=== PATIENT | male | born 1955 | race Two or more races ===

== ENCOUNTER 2019-10-15 18:25 | Emergency (ER) | payer MEDICAID ==
[~2019-10-15] VITALS: Ht 172.7 cm; Wt 90.0 kg
[2019-10-15] MEDS ORDERED: SODIUM CHLORIDE 0.9% 1,000 ML IV ONE (20:38)
[2019-10-15] MEDS ORDERED: LEVETIRACETAM 500MG PREMIX 100 ML IV ONE (20:45)
[2019-10-15] MEDS ORDERED: HYDRALAZINE 20MG/ML VIAL IV ONE (20:45)
[2019-10-15] MEDS ORDERED: LORAZEPAM 2MG/ML CPJ IV ONE (21:45)
[2019-10-15 23:12] LABS: BASOPHILS % 0.9 % (0.0-2.0); EOSINOPHILS % 0.7 % (0.0-5.0); HEMATOCRIT. 37.3 % (42.0-52.0); HEMOGLOBIN. 12.9 g/dL (14.0-18.0); LYMPHOCYTES % 15.3 % (20.0-50.0); MEAN CORPUSCULAR HEMOGLOBIN 32.5 pg (28.0-32.0); MEAN CORPUSCULAR VOLUME 94.2 fL (80.0-94.0); MEAN PLATELET VOLUME 7.4 fl (7.4-10.4); MONOCYTES % 8.8 % (2.0-8.0); NEUTROPHILS % 74.3 % (40.0-76.0); PLATELET 177 x1000/uL (130-400); RED BLOOD CELL COUNT 3.96 mill/uL (4.7-6.1)
[2019-10-15 23:18] LABS: CHLORIDE 108 mEq/L (98-107)
[2019-10-15 23:24] LABS: ETHANOL BLOOD < 10 mg/dL
[2019-10-15] MEDS ORDERED: ASPIRIN 325MG EC TABLET PO ONE (23:45)
[2019-10-16] MEDS ORDERED: CLONIDINE 0.2MG TABLET PO ONE
[2019-10-16] MEDS ORDERED: ENOXAPARIN 40MG/0.4ML SYR SUBCUT SCH (01:30)
[2019-10-16] MEDS ORDERED: HYDRALAZINE 20MG/ML VIAL IV PRN (01:30)
[2019-10-16] MEDS ORDERED: CLONIDINE 0.1MG TABLET PO PRN (01:30)
[2019-10-16] MEDS ORDERED: ONDANSETRON HCL 4MG/2ML INJ IV PRN (01:30)
[2019-10-16] MEDS ORDERED: LEVETIRACETAM 500 MG in SODIUM CHLORIDE 0.9% 100 ML IV SCH (01:30)
[2019-10-16] MEDS ORDERED: MAGNESIUM/ALUMINUM HYDROXIDE/SIMETHICONE 30ML UDC PO PRN (01:30)
[2019-10-16] MEDS ORDERED: ACETAMINOPHEN 325MG TABLET PO PRN (01:30)
[2019-10-16] MEDS ORDERED: LORAZEPAM 2MG/ML CPJ IV PRN (01:30)
[2019-10-16] MEDS ORDERED: DIPHENHYDRAMINE 50MG/ML VIAL IV PRN (01:30)
[2019-10-16] MEDS ORDERED: MVI, ADULT NO.1 10 ML, FOLIC ACID 1 MG, THIAMINE HCL 100 MG in SODIUM CHLORIDE 0.9% 1,0... IV SCH ×4 (02:00)
[2019-10-16] MEDS ORDERED: POTASSIUM CHLORIDE 20MEQ TABLET SR PO ONE (04:30)
[2019-10-16] MEDS ORDERED: SODIUM CHLORIDE 0.9% INJ 3ML FLUSH IVF SCH (06:00)
[2019-10-16 08:47] VITALS: BP 155/85
[2019-10-16] MEDS ORDERED: AMLODIPINE 5MG TABLET PO SCH (09:00)
== END 2019-10-16 08:51 | disposition left against medical advice (07) ==
LOC: ER 18:25 → EDBEDREQTM 10-16 00:03 → EDBEDREQ 10-16 00:03 → ER 10-16 08:51 → CANBEDREQ 10-16 09:42
DX: R56.9 Unspecified convulsions (principal); I21.4 Non-ST elevation (NSTEMI) myocardial infarction; I10 Essential (primary) hypertension; Z91.14 Patient's other noncompliance with medication regimen; E87.6 Hypokalemia; D64.9 Anemia, unspecified
CPT/HCPCS: 36415; 70450; 71045; 80053; 80320; 83735; 84484; 85025; 93005; 96365; 96367; 96375; 99284; J0360; J1953; J2060; J3411; J3490; J7030; G0480

== ENCOUNTER 2019-10-30 19:02 | Emergency (ER) | payer MEDICAID ==
[~2019-10-30] VITALS: Ht 175.3 cm; Wt 110.7 kg
[2019-10-30] MEDS ORDERED: KETOROLAC 60MG/2ML VIAL IM ONE (21:30)
[2019-10-30 22:30] VITALS: BP 149/82
== END 2019-10-30 22:47 | disposition left against medical advice (07) ==
LOC: ER 19:02
DX: S02.40FA Zygomatic fracture, left side, initial encounter for closed fracture (principal); X58.XXXA Exposure to other specified factors, initial encounter; Y93.9 Activity, unspecified; Y92.9 Unspecified place or not applicable
CPT/HCPCS: 70486; 96372; 99284; J1885

== ENCOUNTER 2019-10-31 11:25 | Emergency (ER) | payer MEDICAID ==
[~2019-10-31] VITALS: Ht 175.3 cm; Wt 99.0 kg
[2019-10-31] MEDS ORDERED: AMOXICILLIN/POTASSIUM CLAVULANATE 875/125MG TAB PO ONE (12:45)
[2019-10-31] MEDS ORDERED: ACETAMINOPHEN WITH CODEINE 300/30MG TABLET PO ONE (12:45)
[2019-10-31 13:07] VITALS: BP 121/87
== END 2019-10-31 13:22 | disposition home or self-care (01) ==
LOC: ER 11:25
DX: H70.009 Acute mastoiditis without complications, unspecified ear (principal); S02.40FA Zygomatic fracture, left side, initial encounter for closed fracture; X58.XXXA Exposure to other specified factors, initial encounter; Y93.9 Activity, unspecified; Y92.9 Unspecified place or not applicable
CPT/HCPCS: 99283

== ENCOUNTER 2019-11-10 00:19 | Inpatient (IN) | payer SELFPAY ==
[~2019-11-10] VITALS: Ht 175.3 cm; Wt 65.4 kg
[2019-11-10] MEDS ORDERED: METHYLPREDNISOLONE SOD SUCC 125 MG/2 ML VIAL IV STA (02:11)
[2019-11-10] MEDS ORDERED: IPRATROPIUM BROMIDE (0.02%) 0.5MG/2.5ML NEB HHN STA (02:11)
[2019-11-10] MEDS ORDERED: AZITHROMYCIN 500 MG in DEXT 5% WATER 250 ML IV ONE (02:15)
[2019-11-10] MEDS ORDERED: CEFTRIAXONE 1 G PREMIX 50 ML IV ONE (02:15)
[2019-11-10 02:42] LABS: BG CARBOXYHEMOGLOBIN 0.7 % (0.5-1.5); BG DEOXYHEMOGLOBIN 6.3 % (0.0-5.0); BG FRACTION INSPIRED OXYGEN 21; BG HCO3 ACT 26.4 mmol/L (22.0-26.0); BG METHEMOGLOBIN 0.2 % (0.0-1.5); BG OXYGEN SATURATION 93.6 % (92.0-98.5); BG OXYHEMOGLOBIN 92.8 % (94.0-97.0); BG PCO2 40.6 mmHg (35.0-45.0); BG PH 7.431 (7.350-7.450); BG PO2 69.1 mmHg (75.0-100.0); BG SAMPLE SITE RIGHT RADIAL; BG TOTAL HEMOGLOBIN 12.8 g/dL (12.0-18.0); BG VENT MODE ROOM AIR
[2019-11-10] MEDS: ALBUTEROL (0.083%) 2.5MG/3ML NEB HHN SCH ×3 (02:54→03:30)
[2019-11-10 03:04] LABS: CHLORIDE 108 mEq/L (98-107)
[2019-11-10 03:25] LABS: BASOPHILS % 0.8 % (0.0-2.0); EOSINOPHILS % 2.5 % (0.0-5.0); HEMOGLOBIN. 12.4 g/dL (14.0-18.0); LYMPHOCYTES % 17.9 % (20.0-50.0); MEAN CORPUSCULAR HEMOGLOBIN 32.2 pg (28.0-32.0); MEAN CORPUSCULAR VOLUME 96.4 fL (80.0-94.0); MEAN PLATELET VOLUME 7.6 fl (7.4-10.4); MONOCYTES % 11.8 % (2.0-8.0); PLATELET 347 x1000/uL (130-400); RED BLOOD CELL COUNT 3.84 mill/uL (4.7-6.1); RED CELL DISTRIBUTION WIDTH 14.5 % (11.6-14.6)
[2019-11-10] MEDS ORDERED: ASPIRIN 325MG TABLET PO ONE (04:45)
[2019-11-10] MEDS ORDERED: ENOXAPARIN 80MG/0.8ML SYR SUBCUT ONE (04:45)
[2019-11-10] MEDS ORDERED: ONDANSETRON HCL 4MG/2ML INJ IV PRN (10:45)
[2019-11-10] MEDS ORDERED: MAGNESIUM/ALUMINUM HYDROXIDE/SIMETHICONE 30ML UDC PO PRN (10:45)
[2019-11-10] MEDS ORDERED: CLONIDINE 0.1MG TABLET PO PRN (10:45)
[2019-11-10] MEDS ORDERED: HYDRALAZINE 20MG/ML VIAL IV PRN ×2 (10:45→14:00)
[2019-11-10] MEDS ORDERED: DIPHENHYDRAMINE 50MG/ML VIAL IV PRN (10:45)
[2019-11-10] MEDS ORDERED: ACETAMINOPHEN 325MG TABLET PO PRN (10:45)
[2019-11-10] MEDS ORDERED: METHYLPREDNISOLONE SOD SUCC 125 MG/2 ML VIAL IV NR ×2 (14:08→16:00)
[2019-11-10] MEDS: ENOXAPARIN 30MG/0.3ML SYR SUBCUT SCH ×2 (14:27→22:34)
[2019-11-10] MEDS: CLONIDINE 0.1MG TABLET PO PRN (14:28)
[2019-11-10] MEDS: SODIUM CHLORIDE 0.9% INJ 3ML FLUSH IVF SCH ×2 (14:31→21:51)
[2019-11-10] MEDS ORDERED: IPRATROPIUM/ALBUTEROL 0.5-3(2.5)MG/3ML NEB HHN PRN (15:00)
[2019-11-10] MEDS ORDERED: MONTELUKAST SODIUM 10MG TABLET PO NR (16:00)
[2019-11-10] MEDS ORDERED: IPRATROPIUM/ALBUTEROL 0.5-3(2.5)MG/3ML NEB HHN NR (16:00)
[2019-11-10 16:19] VITALS: BP 197/114
[2019-11-10] MEDS ORDERED: METF-414 PO (17:03)
[2019-11-10] MEDS: LOSARTAN POTASSIUM 25 MG TABLET PO SCH (17:40)
[2019-11-10] MEDS: AMLODIPINE 5MG TABLET PO SCH (17:41)
[2019-11-10 18:00] VITALS: BP 169/80
[2019-11-10] MEDS ORDERED: INFLUENZA VIRUS VACCINE(AFLURIA) 0.5ML SYR IM ONE (18:00)
[2019-11-10] MEDS ORDERED: PNEUMOCOCCAL 23-VAL P-SAC VAC 0.5 ML IM ONE (18:00)
[2019-11-10 20:00] VITALS: BP 181/84
[2019-11-10] MEDS: GUAIFENESIN 200MG/10ML SUGAR FREE UDC PO PRN (20:05)
[2019-11-10] MEDS: IPRATROPIUM/ALBUTEROL 0.5-3(2.5)MG/3ML NEB HHN SCH (21:01)
[2019-11-10] MEDS: FLUTICASONE PROPIONATE 50MCG/SPRAY BOTTLE BOTHNSTRLS SCH (21:09)
[2019-11-10] MEDS: CHLORDIAZEPOXIDE 25MG CAPSULE PO SCH (21:09)
[2019-11-10] MEDS: TEMAZEPAM 15MG CAPSULE PO PRN (21:09)
[2019-11-10] MEDS: METHYLPREDNISOLONE SOD SUCC 125 MG/2 ML VIAL IV SCH (21:10)
[2019-11-10] MEDS: THIAMINE HCL 100MG TABLET PO SCH (21:51)
[2019-11-10 22:00] VITALS: BP 157/102
[2019-11-11] VITALS (12 sets, daily range): BP systolic 103–178; BP diastolic 52–93
[2019-11-11] MEDS: IPRATROPIUM/ALBUTEROL 0.5-3(2.5)MG/3ML NEB HHN SCH ×3 (00:52→20:48)
[2019-11-11] MEDS: METHYLPREDNISOLONE SOD SUCC 125 MG/2 ML VIAL IV SCH ×3 (05:45→21:22)
[2019-11-11] MEDS: CHLORDIAZEPOXIDE 25MG CAPSULE PO SCH ×3 (05:46→21:22)
[2019-11-11 07:36] LABS: CHLORIDE 102 mEq/L (98-107)
[2019-11-11 07:47] LABS: BASOPHILS % 0.2 % (0.0-2.0); HEMATOCRIT. 38.1 % (42.0-52.0); HEMOGLOBIN. 12.4 g/dL (14.0-18.0); LYMPHOCYTES % 7.3 % (20.0-50.0); MEAN CORPUSCULAR HEMOGLOBIN 31.5 pg (28.0-32.0); MEAN CORPUSCULAR VOLUME 96.4 fL (80.0-94.0); MEAN PLATELET VOLUME 7.8 fl (7.4-10.4); NEUTROPHILS % 89.5 % (40.0-76.0); PLATELET 412 x1000/uL (130-400); RED BLOOD CELL COUNT 3.95 mill/uL (4.7-6.1); RED CELL DISTRIBUTION WIDTH 13.7 % (11.6-14.6)
[2019-11-11 07:52] LABS: LDL CHOLESTEROL 95 mg/dL (5-100)
[2019-11-11 07:53] LABS: CREATINE KINASE 195 IU/L (39-308); HDL CHOLESTEROL 32 mg/dL (40-59)
[2019-11-11 07:57] LABS: CREATINE KINASE MB FRACTION 3.4 ng/mL (0.5-3.6)
[2019-11-11] MEDS: LOSARTAN POTASSIUM 25 MG TABLET PO SCH ×3 (09:16→20:30)
[2019-11-11] MEDS: THIAMINE HCL 100MG TABLET PO SCH (09:16)
[2019-11-11] MEDS: AMLODIPINE 5MG TABLET PO SCH ×2 (09:17→20:29)
[2019-11-11] MEDS: FLUTICASONE PROPIONATE 50MCG/SPRAY BOTTLE BOTHNSTRLS SCH ×2 (09:17→20:34)
[2019-11-11] MEDS: ASPIRIN 81MG EC TABLET PO SCH (09:17)
[2019-11-11] MEDS: NICOTINE 21MG PATCH TD SCH (09:17)
[2019-11-11] MEDS: CLONIDINE 0.1MG TABLET PO PRN ×2 (10:13→18:51)
[2019-11-11] MEDS: ENOXAPARIN 30MG/0.3ML SYR SUBCUT SCH (13:05)
[2019-11-11] MEDS ORDERED: DEXTROSE 50% WATER 50ML SYRINGE IV PRN (14:30)
[2019-11-11] MEDS: BLOOD SUGAR DIAGNOSTIC STRIP TEST SCH ×2 (16:50→21:11)
[2019-11-11] MEDS ORDERED: AMLODIPINE 5MG TABLET PO SCH (17:00)
[2019-11-11] MEDS: INSULIN LISPRO 100 UNITS/ML SUBCUT SCH ×2 (17:50→21:22)
[2019-11-11 18:35] LABS: *AMPHETAMINES SCREEN URINE NEGATIVE (NEGATIVE); *BARBITURATES SCREEN URINE NEGATIVE (NEGATIVE); *BENZODIAZEPINES SCREEN URINE PRESUMTIVE POSITIVE (NEGATIVE)
[2019-11-11 18:37] LABS: *COCAINE SCREEN URINE NEGATIVE (NEGATIVE); CANNABINOID URINE SCREEN NEGATIVE (NEGATIVE); METHADONE URINE SCREEN NEGATIVE (NEGATIVE); OPIATES URINE SCREEN NEGATIVE (NEGATIVE); PHENCYCLIDINE URINE SCREEN NEGATIVE (NEGATIVE)
[2019-11-11] MEDS: TEMAZEPAM 15MG CAPSULE PO PRN (20:34)
[2019-11-11] MEDS: SODIUM CHLORIDE 0.9% INJ 3ML FLUSH IVF SCH (21:25)
[2019-11-12] VITALS (8 sets, daily range): BP systolic 116–175; BP diastolic 49–96
[2019-11-12] MEDS: IPRATROPIUM/ALBUTEROL 0.5-3(2.5)MG/3ML NEB HHN SCH ×3 (01:22→12:09)
[2019-11-12] MEDS: SODIUM CHLORIDE 0.9% INJ 3ML FLUSH IVF SCH ×2 (06:00→15:02)
[2019-11-12] MEDS: BLOOD SUGAR DIAGNOSTIC STRIP TEST SCH ×3 (07:20→16:50)
[2019-11-12] MEDS: INSULIN LISPRO 100 UNITS/ML SUBCUT SCH ×3 (07:20→17:55)
[2019-11-12] MEDS ORDERED: REGADENOSON 0.4 MG/5 ML IV ONE (08:50)
[2019-11-12] MEDS ORDERED: ENOXAPARIN 40MG/0.4ML SYR SUBCUT SCH (09:00)
[2019-11-12] MEDS ORDERED: REGADENOSON 0.4 MG/5 ML IV SCH (09:00)
[2019-11-12] MEDS ORDERED: LOSARTAN POTASSIUM 25 MG TABLET PO SCH (09:00)
[2019-11-12] MEDS: ASPIRIN 81MG EC TABLET PO SCH (10:27)
[2019-11-12] MEDS: AMLODIPINE 5MG TABLET PO SCH (10:27)
[2019-11-12] MEDS: CHLORDIAZEPOXIDE 25MG CAPSULE PO SCH ×2 (10:28→15:04)
[2019-11-12] MEDS: LOSARTAN POTASSIUM 25 MG TABLET PO SCH (10:28)
[2019-11-12] MEDS: METHYLPREDNISOLONE SOD SUCC 125 MG/2 ML VIAL IV SCH ×2 (10:28→15:03)
[2019-11-12] MEDS: THIAMINE HCL 100MG TABLET PO SCH (10:28)
[2019-11-12] MEDS: NICOTINE 21MG PATCH TD SCH (10:29)
[2019-11-12] MEDS: FLUTICASONE PROPIONATE 50MCG/SPRAY BOTTLE BOTHNSTRLS SCH (10:37)
[2019-11-12] MEDS: GUAIFENESIN 200MG/10ML SUGAR FREE UDC PO PRN (15:28)
[2019-11-12] MEDS ORDERED: METFORMIN HCL 500MG TABLET PO SCH (17:20)
[2019-11-13] MEDS ORDERED: GLIMEPIRIDE 2MG TABLET PO SCH (06:50)
== END 2019-11-12 19:58 | disposition home or self-care (01) | DRG 140 ==
LOC: ER 00:19 → 3WST 04:42 → EDBEDREQ 04:44 → EDBEDREQTM 04:44 → EDBEDREQSVC 04:44 → ENRESERV 14:52
PROVIDERS: ADMIT Internal Medicine; ATTEND Internal Medicine
DX: J44.1 Chronic obstructive pulmonary disease with (acute) exacerbation (principal); J96.91 Respiratory failure, unspecified with hypoxia; J20.9 Acute bronchitis, unspecified; J44.0 Chronic obstructive pulmonary disease with (acute) lower respiratory infection; E11.9 Type 2 diabetes mellitus without complications; E66.9 Obesity, unspecified; F10.10 Alcohol abuse, uncomplicated; F17.200 Nicotine dependence, unspecified, uncomplicated; I11.0 Hypertensive heart disease with heart failure; I50.9 Heart failure, unspecified; Z59.0 Homelessness; Z79.82 Long term (current) use of aspirin; Z79.84 Long term (current) use of oral hypoglycemic drugs; Z79.899 Other long term (current) drug therapy; Z82.49 Family history of ischemic heart disease and other diseases of the circulatory system; Z68.21 Body mass index [BMI] 21.0-21.9, adult
CPT/HCPCS: 36415; 36600; 71045; 78452; 80053; 80061; 80305; 82375; 82550; 82553; 82805; 82962; 83036; 83605; 83880; 84443; 84484; 85025; 85379; 90686; 90732; 93005; 93017; 93306; 94640; 99291; A9500; J0360; J0456; J0696; J1200; J1650; J1815; J2785; J2930; J7060; J7611; J7620

== ENCOUNTER 2019-11-23 00:06 | Emergency (ER) | payer MEDICAID ==
[~2019-11-23] VITALS: Ht 172.7 cm; Wt 91.0 kg
[2019-11-23 05:37] LABS: BASOPHILS % 0.7 % (0.0-2.0); CHLORIDE 105 mEq/L (98-107); EOSINOPHILS % 1.9 % (0.0-5.0); HEMATOCRIT. 38.2 % (42.0-52.0); HEMOGLOBIN. 13.2 g/dL (14.0-18.0); MEAN CORPUSCULAR HEMOGLOBIN 32.8 pg (28.0-32.0); MEAN PLATELET VOLUME 7.7 fl (7.4-10.4); MONOCYTES % 6.8 % (2.0-8.0); NEUTROPHILS % 58.6 % (40.0-76.0); PLATELET 276 x1000/uL (130-400); RED BLOOD CELL COUNT 4.02 mill/uL (4.7-6.1)
[2019-11-23 05:40] VITALS: BP 129/74
[2019-11-23] MEDS ORDERED: ONDANSETRON 4MG ODT PO ONE (06:30)
[2019-11-23] MEDS ORDERED: MECLIZINE 25MG TABLET PO ONE (06:30)
== END 2019-11-23 07:03 | disposition left against medical advice (07) ==
LOC: ER 00:18
DX: R42 Dizziness and giddiness (principal); E11.9 Type 2 diabetes mellitus without complications; I10 Essential (primary) hypertension
CPT/HCPCS: 36415; 80053; 84484; 85025; 93005; 99285

== ENCOUNTER 2019-11-26 23:39 | Inpatient (IN) | payer MEDICAID ==
[~2019-11-26] VITALS: Ht 175.3 cm; Wt 108.9 kg
[2019-11-27] MEDS ORDERED: ASPIRIN 81MG TABLET PO ONE (05:00)
[2019-11-27 05:05] LABS: BASOPHILS % 1.1 % (0.0-2.0); HEMATOCRIT. 39.7 % (42.0-52.0); HEMOGLOBIN. 13.7 g/dL (14.0-18.0); LYMPHOCYTES % 31.3 % (20.0-50.0); MEAN CORPUSCULAR HEMOGLOBIN 32.8 pg (28.0-32.0); MEAN CORPUSCULAR VOLUME 95.1 fL (80.0-94.0); MEAN PLATELET VOLUME 7.3 fl (7.4-10.4); MONOCYTES % 7.8 % (2.0-8.0); NEUTROPHILS % 55.8 % (40.0-76.0); PLATELET 232 x1000/uL (130-400); RED BLOOD CELL COUNT 4.17 mill/uL (4.7-6.1); RED CELL DISTRIBUTION WIDTH 14.6 % (11.6-14.6)
[2019-11-27 05:12] LABS: CHLORIDE 106 mEq/L (98-107)
[2019-11-27 05:59] LABS: PARTIAL THROMBOPLASTIN TIME 25.7 sec (23.4-31.0); PROTHROMBIN TIME 10.6 sec (9.6-11.0)
[2019-11-27] MEDS ORDERED: HEPARIN 25,000 UNITS PREMIX 500 ML IV PRN ×2 (06:00→07:15)
[2019-11-27] MEDS ORDERED: HEPARIN 5000 UNITS/ML VIAL IV SCH (07:11)
[2019-11-27] MEDS ORDERED: HEPARIN 5000 UNITS/ML VIAL IV PRN ×2 (07:15)
[2019-11-27] MEDS ORDERED: MORPHINE SULFATE 2 MG/ML CPJ (NOT FOR IM USE) IV PRN (08:45)
[2019-11-27] MEDS ORDERED: IPRATROPIUM/ALBUTEROL 0.5-3(2.5)MG/3ML NEB HHN PRN (08:45)
[2019-11-27] MEDS ORDERED: ACETAMINOPHEN 325MG TABLET PO PRN (08:45)
[2019-11-27] MEDS ORDERED: ONDANSETRON HCL 4MG/2ML INJ IV PRN (08:45)
[2019-11-27] MEDS ORDERED: DIPHENHYDRAMINE 50MG/ML VIAL IV PRN (08:45)
[2019-11-27] MEDS ORDERED: DEXTROSE 50% WATER 50ML SYRINGE IV PRN (09:30)
[2019-11-27 10:43] LABS: PHOSPHORUS 4.2 mg/dL (2.5-4.9)
[2019-11-27] MEDS ORDERED: AMLODIPINE 5MG TABLET PO ONE (11:45)
[2019-11-27] MEDS ORDERED: LORAZEPAM 2MG/ML CPJ IV PRN (13:30)
[2019-11-27] MEDS: INSULIN LISPRO 100 UNITS/ML SUBCUT SCH ×3 (14:25→20:26)
[2019-11-27] MEDS: BLOOD SUGAR DIAGNOSTIC STRIP TEST SCH ×3 (14:25→21:00)
[2019-11-27] MEDS ORDERED: CHLORDIAZEPOXIDE 25MG CAPSULE PO NR (15:30)
[2019-11-27] MEDS: CLONIDINE 0.1MG TABLET PO PRN (16:45)
[2019-11-27 21:55] VITALS: BP 168/84
[2019-11-27] MEDS ORDERED: AMLODIPINE 5MG TABLET PO NR (22:09)
[2019-11-27] MEDS: CHLORDIAZEPOXIDE 25MG CAPSULE PO SCH (22:31)
[2019-11-28] VITALS: BP 153/79
[2019-11-28 04:00] VITALS: BP 148/77
[2019-11-28] MEDS: CHLORDIAZEPOXIDE 25MG CAPSULE PO SCH ×3 (06:49→21:41)
[2019-11-28] MEDS: BLOOD SUGAR DIAGNOSTIC STRIP TEST SCH ×4 (07:02→21:42)
[2019-11-28] MEDS: INSULIN LISPRO 100 UNITS/ML SUBCUT SCH ×4 (07:03→21:49)
[2019-11-28 07:56] LABS: BASOPHILS % 0.9 % (0.0-2.0); EOSINOPHILS % 3.7 % (0.0-5.0); HEMATOCRIT. 37.4 % (42.0-52.0); HEMOGLOBIN. 12.5 g/dL (14.0-18.0); LYMPHOCYTES % 29.3 % (20.0-50.0); MEAN CORPUSCULAR HEMOGLOBIN 32.1 pg (28.0-32.0); MEAN CORPUSCULAR VOLUME 96.3 fL (80.0-94.0); MEAN PLATELET VOLUME 7.6 fl (7.4-10.4); MONOCYTES % 6.6 % (2.0-8.0); NEUTROPHILS % 59.5 % (40.0-76.0); PLATELET 188 x1000/uL (130-400); RED BLOOD CELL COUNT 3.88 mill/uL (4.7-6.1); RED CELL DISTRIBUTION WIDTH 14.2 % (11.6-14.6)
[2019-11-28 08:00] VITALS: BP 167/93
[2019-11-28 08:10] LABS: CHLORIDE 105 mEq/L (98-107)
[2019-11-28 08:38] LABS: HDL CHOLESTEROL 38 mg/dL (40-59); LDL CHOLESTEROL 137 mg/dL (5-100)
[2019-11-28] MEDS ORDERED: AMLODIPINE 5MG TABLET PO SCH (09:00)
[2019-11-28] MEDS: ASPIRIN 81MG EC TABLET PO SCH (09:41)
[2019-11-28] MEDS: CLONIDINE 0.1MG TABLET PO PRN (09:41)
[2019-11-28] MEDS ORDERED: LORAZEPAM 2MG/ML CPJ IV PRN (11:00)
[2019-11-28 12:00] VITALS: BP 156/94
[2019-11-28] MEDS: CLONIDINE 0.1MG TABLET PO SCH ×2 (12:57→21:41)
[2019-11-28 16:00] VITALS: BP 125/67
[2019-11-28 16:26] LABS: *AMPHETAMINES SCREEN URINE NEGATIVE (NEGATIVE); *BARBITURATES SCREEN URINE NEGATIVE (NEGATIVE)
[2019-11-28 16:27] LABS: *BENZODIAZEPINES SCREEN URINE PRESUMTIVE POSITIVE (NEGATIVE); *COCAINE SCREEN URINE NEGATIVE (NEGATIVE); CANNABINOID URINE SCREEN NEGATIVE (NEGATIVE); METHADONE URINE SCREEN NEGATIVE (NEGATIVE); OPIATES URINE SCREEN NEGATIVE (NEGATIVE); PHENCYCLIDINE URINE SCREEN NEGATIVE (NEGATIVE)
[2019-11-28] MEDS: FOLIC ACID 1MG TABLET PO SCH (17:08)
[2019-11-28] MEDS: THIAMINE HCL 100MG TABLET PO SCH (17:08)
[2019-11-28 20:00] VITALS: BP 149/83
[2019-11-28] MEDS: AMLODIPINE 5MG TABLET PO SCH (21:42)
[2019-11-29] VITALS: BP 149/80
[2019-11-29 04:00] VITALS: BP 146/80
[2019-11-29] MEDS: CHLORDIAZEPOXIDE 25MG CAPSULE PO SCH (06:26)
[2019-11-29] MEDS: BLOOD SUGAR DIAGNOSTIC STRIP TEST SCH (06:26)
[2019-11-29] MEDS: INSULIN LISPRO 100 UNITS/ML SUBCUT SCH (06:28)
[2019-11-29 08:00] VITALS: BP 148/88
[2019-11-29 08:20] LABS: BASOPHILS % 0.8 % (0.0-2.0); EOSINOPHILS % 4.1 % (0.0-5.0); HEMOGLOBIN. 12.5 g/dL (14.0-18.0); LYMPHOCYTES % 25.6 % (20.0-50.0); MEAN CORPUSCULAR HEMOGLOBIN 32.3 pg (28.0-32.0); MEAN CORPUSCULAR VOLUME 95.8 fL (80.0-94.0); MEAN PLATELET VOLUME 7.5 fl (7.4-10.4); MONOCYTES % 7.5 % (2.0-8.0); PLATELET 181 x1000/uL (130-400); RED BLOOD CELL COUNT 3.86 mill/uL (4.7-6.1); RED CELL DISTRIBUTION WIDTH 14.2 % (11.6-14.6)
[2019-11-29 08:22] LABS: CHLORIDE 103 mEq/L (98-107)
[2019-11-29] MEDS: AMLODIPINE 5MG TABLET PO SCH (09:23)
[2019-11-29] MEDS: THIAMINE HCL 100MG TABLET PO SCH (09:24)
[2019-11-29] MEDS: CLONIDINE 0.1MG TABLET PO SCH (09:24)
[2019-11-29] MEDS: ASPIRIN 81MG EC TABLET PO SCH (09:24)
[2019-11-29] MEDS: FOLIC ACID 1MG TABLET PO SCH (10:06)
== END 2019-11-29 10:15 | disposition left against medical advice (07) | DRG 48 ==
LOC: ER 23:39 → 5WST 11-27 05:57 → EDBEDREQ 11-27 06:05 → ENRESERV 11-27 20:12
PROVIDERS: ADMIT Internal Medicine; ATTEND Internal Medicine
DX: G90.8 Other disorders of autonomic nervous system (principal); I11.9 Hypertensive heart disease without heart failure; D53.9 Nutritional anemia, unspecified; E11.9 Type 2 diabetes mellitus without complications; E78.5 Hyperlipidemia, unspecified; F10.20 Alcohol dependence, uncomplicated; R74.0 Nonspecific elevation of levels of transaminase and lactic acid dehydrogenase [LDH]; F14.10 Cocaine abuse, uncomplicated; Z53.29 Procedure and treatment not carried out because of patient's decision for other reasons; Z79.4 Long term (current) use of insulin; Z79.82 Long term (current) use of aspirin; Z79.899 Other long term (current) drug therapy; Z82.3 Family history of stroke; Z82.49 Family history of ischemic heart disease and other diseases of the circulatory system
CPT/HCPCS: 36415; 71045; 80048; 80053; 80061; 80305; 82962; 83735; 83880; 84100; 84443; 84484; 85025; 93005; 93970; 96372; 96374; 96376; 99285; J1644; J1815; J2060

== ENCOUNTER 2019-12-31 10:34 | Emergency (ER) | payer MEDICAID ==
[~2019-12-31] VITALS: Ht 175.3 cm; Wt 93.0 kg
[2019-12-31] MEDS ORDERED: KETOROLAC 15MG/ML VIAL IM ONE (11:15)
[2019-12-31 11:17] VITALS: BP 147/83
== END 2019-12-31 11:30 | disposition home or self-care (01) ==
LOC: ER 10:34
DX: M79.605 Pain in left leg (principal); M79.18 Myalgia, other site; R05 Cough; E11.9 Type 2 diabetes mellitus without complications; I10 Essential (primary) hypertension
CPT/HCPCS: 96372; 99283; J1885

== ENCOUNTER 2020-03-10 15:29 | Inpatient (IN) | payer SELFPAY ==
[~2020-03-10] VITALS: Ht 182.9 cm; Wt 107.1 kg
[2020-03-10 18:04] LABS: BASOPHILS % 0.7 % (0.0-2.0); EOSINOPHILS % 1.3 % (0.0-5.0); HEMATOCRIT. 38.5 % (42.0-52.0); HEMOGLOBIN. 13.2 g/dL (14.0-18.0); LYMPHOCYTES % 41.4 % (20.0-50.0); MEAN CORPUSCULAR HEMOGLOBIN 31.3 pg (28.0-32.0); MEAN CORPUSCULAR VOLUME 91.2 fL (80.0-94.0); MEAN PLATELET VOLUME 6.8 fl (7.4-10.4); MONOCYTES % 11.4 % (2.0-8.0); NEUTROPHILS % 45.2 % (40.0-76.0); PLATELET 215 x1000/uL (130-400); RED BLOOD CELL COUNT 4.23 mill/uL (4.7-6.1); RED CELL DISTRIBUTION WIDTH 14.7 % (11.6-14.6)
[2020-03-10 18:11] LABS: CHLORIDE 105 mEq/L (98-107)
[2020-03-10] MEDS ORDERED: KETOROLAC 30MG/ML VIAL IV ONE (18:30)
[2020-03-10] MEDS ORDERED: ASPIRIN 325MG TABLET PO ONE (19:00)
[2020-03-10] MEDS ORDERED: ENOXAPARIN 100MG/ML SYR SUBCUT ONE (19:00)
[2020-03-10] MEDS ORDERED: MAGNESIUM/ALUMINUM HYDROXIDE/SIMETHICONE 30ML UDC PO PRN (21:30)
[2020-03-10] MEDS ORDERED: ZOLPIDEM TARTRATE 5MG TABLET PO PRN (21:30)
[2020-03-10] MEDS ORDERED: ACETAMINOPHEN 325MG TABLET PO PRN ×2 (21:30)
[2020-03-10] MEDS ORDERED: DEXTROSE 50% WATER 50ML SYRINGE IV PRN (21:30)
[2020-03-10] MEDS ORDERED: IPRATROPIUM/ALBUTEROL 0.5-3(2.5)MG/3ML NEB HHN PRN (21:30)
[2020-03-10] MEDS ORDERED: GUAIFENESIN 200MG/10ML SUGAR FREE UDC PO PRN (21:30)
[2020-03-10] MEDS ORDERED: ONDANSETRON HCL 4MG/2ML INJ IV PRN (21:30)
[2020-03-10] MEDS ORDERED: DIPHENHYDRAMINE 50MG/ML VIAL IV PRN (21:30)
[2020-03-10] MEDS ORDERED: BUDESONIDE 0.5MG/2ML NEB HHN SCH (22:00)
[2020-03-10] MEDS ORDERED: LORAZEPAM 2MG/ML CPJ IV PRN (22:45)
[2020-03-10 23:45] VITALS: BP 167/80
[2020-03-10] MEDS: SODIUM CHLORIDE 0.9% INJ 3ML FLUSH IVF SCH (23:59)
[2020-03-11] VITALS (16 sets, daily range): BP systolic 125–179; BP diastolic 69–98
[2020-03-11] MEDS: CLONIDINE 0.1MG TABLET PO PRN (02:23)
[2020-03-11] MEDS: CHLORDIAZEPOXIDE 25MG CAPSULE PO SCH ×3 (06:04→22:07)
[2020-03-11] MEDS: SODIUM CHLORIDE 0.9% INJ 3ML FLUSH IVF SCH ×3 (06:05→22:10)
[2020-03-11] MEDS: BLOOD SUGAR DIAGNOSTIC STRIP TEST SCH ×4 (06:05→22:10)
[2020-03-11] MEDS: GLIMEPIRIDE 2MG TABLET PO SCH (06:05)
[2020-03-11] MEDS: INSULIN LISPRO 100 UNITS/ML SUBCUT SCH ×4 (07:20→22:21)
[2020-03-11] MEDS: METFORMIN HCL 500MG TABLET PO SCH ×2 (08:40→18:38)
[2020-03-11] MEDS: GUAIFENESIN 600MG ER TABLET PO SCH ×2 (08:40→22:07)
[2020-03-11] MEDS: AMLODIPINE 5MG TABLET PO SCH ×2 (08:40→22:07)
[2020-03-11] MEDS ORDERED: LOSARTAN POTASSIUM 50 MG TABLET PO SCH (09:00)
[2020-03-11] MEDS ORDERED: ASPIRIN 81MG EC TABLET PO SCH (09:00)
[2020-03-11] MEDS ORDERED: HYDRALAZINE 20MG/ML VIAL IV PRN (14:45)
[2020-03-11] MEDS: LOSARTAN POTASSIUM 50 MG TABLET PO SCH ×2 (15:12→22:10)
[2020-03-11] MEDS ORDERED: MONTELUKAST SODIUM 10MG TABLET PO SCH (17:00)
[2020-03-12] VITALS (8 sets, daily range): BP systolic 115–166; BP diastolic 71–97
[2020-03-12] MEDS: BLOOD SUGAR DIAGNOSTIC STRIP TEST SCH (06:09)
[2020-03-12] MEDS: CHLORDIAZEPOXIDE 25MG CAPSULE PO SCH (06:09)
[2020-03-12] MEDS: GLIMEPIRIDE 2MG TABLET PO SCH (06:09)
[2020-03-12] MEDS: SODIUM CHLORIDE 0.9% INJ 3ML FLUSH IVF SCH (06:12)
[2020-03-12] MEDS: CLONIDINE 0.1MG TABLET PO PRN (06:21)
== END 2020-03-12 07:40 | disposition home or self-care (01) | DRG 190 ==
LOC: ER 15:29 → MICUSO 20:40 → 3WST 23:19
PROVIDERS: ADMIT Internal Medicine; ATTEND Internal Medicine
DX: I21.4 Non-ST elevation (NSTEMI) myocardial infarction (principal); E11.9 Type 2 diabetes mellitus without complications; E66.9 Obesity, unspecified; I10 Essential (primary) hypertension; E78.5 Hyperlipidemia, unspecified; F10.20 Alcohol dependence, uncomplicated; F17.200 Nicotine dependence, unspecified, uncomplicated; Z71.6 Tobacco abuse counseling; Z79.899 Other long term (current) drug therapy; Z68.32 Body mass index [BMI] 32.0-32.9, adult
CPT/HCPCS: 36415; 71045; 80053; 82962; 83036; 83880; 84484; 85025; 93005; 99285; J0360; J1650; J1885; J2060; J7626

== ENCOUNTER 2020-03-25 13:11 | Emergency (ER) | payer SELFPAY ==
[~2020-03-25] VITALS: Ht 175.3 cm; Wt 100.0 kg
[2020-03-25 14:42] LABS: BASOPHILS % 0.9 % (0.0-2.0); EOSINOPHILS % 2.6 % (0.0-5.0); HEMATOCRIT. 38.3 % (42.0-52.0); LYMPHOCYTES % 27.2 % (20.0-50.0); MEAN CORPUSCULAR HEMOGLOBIN 32.2 pg (28.0-32.0); MEAN CORPUSCULAR VOLUME 94.6 fL (80.0-94.0); MEAN PLATELET VOLUME 7.4 fl (7.4-10.4); NEUTROPHILS % 60.3 % (40.0-76.0); PLATELET 312 x1000/uL (130-400); RED BLOOD CELL COUNT 4.04 mill/uL (4.7-6.1); RED CELL DISTRIBUTION WIDTH 15.4 % (11.6-14.6)
[2020-03-25 14:47] LABS: CHLORIDE 105 mEq/L (98-107)
[2020-03-25] MEDS ORDERED: SODIUM CHLORIDE 0.9% 1,000 ML IV ONE (14:48)
[2020-03-25 14:54] LABS: ETHANOL BLOOD 251 mg/dL
[2020-03-25 20:21] LABS: CLARITY URINE CLEAR (CLEAR); COLOR URINE YELLOW (YELLOW); KETONES URINE TRACE (NEGATIVE); LEUKOCYTE ESTERASE URINE NEGATIVE (NEGATIVE); NITRITE URINE NEGATIVE (NEGATIVE); OCCULT BLOOD URINE NEGATIVE (NEGATIVE); PROTEIN URINE 1+ (NEGATIVE)
[2020-03-25 20:48] LABS: *AMPHETAMINES SCREEN URINE NEGATIVE (NEGATIVE)
[2020-03-25 20:49] LABS: *BARBITURATES SCREEN URINE NEGATIVE (NEGATIVE); *BENZODIAZEPINES SCREEN URINE PRESUMTIVE POSITIVE (NEGATIVE); *COCAINE SCREEN URINE NEGATIVE (NEGATIVE); METHADONE URINE SCREEN NEGATIVE (NEGATIVE); OPIATES URINE SCREEN NEGATIVE (NEGATIVE); PHENCYCLIDINE URINE SCREEN NEGATIVE (NEGATIVE)
[2020-03-25 20:50] LABS: CANNABINOID URINE SCREEN NEGATIVE (NEGATIVE)
[2020-03-25 20:58] VITALS: BP 150/89
== END 2020-03-25 21:01 | disposition home or self-care (01) ==
LOC: ER 13:11
DX: F10.129 Alcohol abuse with intoxication, unspecified (principal); Y90.8 Blood alcohol level of 240 mg/100 ml or more; R45.851 Suicidal ideations; F32.9 Major depressive disorder, single episode, unspecified; Z56.0 Unemployment, unspecified; I10 Essential (primary) hypertension; F19.10 Other psychoactive substance abuse, uncomplicated
CPT/HCPCS: 36415; 80053; 80305; 80320; 81003; 85025; 99283; J7030; G0480

== ENCOUNTER 2020-03-30 20:49 | Inpatient (IN) | payer SELFPAY ==
[~2020-03-30] VITALS: Ht 175.3 cm; Wt 110.9 kg
[2020-03-31] MEDS ORDERED: ASPIRIN 81MG TABLET PO ONE (01:00)
[2020-03-31] MEDS ORDERED: NITROGLYCERIN OINT 1GM/INCH UDPKT TD ONE (01:00)
[2020-03-31 01:54] LABS: BASOPHILS % 0.9 % (0.0-2.0); EOSINOPHILS % 2.4 % (0.0-5.0); HEMATOCRIT. 41.8 % (42.0-52.0); HEMOGLOBIN. 14.4 g/dL (14.0-18.0); LYMPHOCYTES % 47.9 % (20.0-50.0); MEAN CORPUSCULAR VOLUME 93.1 fL (80.0-94.0); MEAN PLATELET VOLUME 6.9 fl (7.4-10.4); MONOCYTES % 9.4 % (2.0-8.0); NEUTROPHILS % 39.4 % (40.0-76.0); PLATELET 265 x1000/uL (130-400); RED BLOOD CELL COUNT 4.49 mill/uL (4.7-6.1); RED CELL DISTRIBUTION WIDTH 15.6 % (11.6-14.6)
[2020-03-31 01:56] LABS: CHLORIDE 104 mEq/L (98-107)
[2020-03-31 02:00] LABS: ETHANOL BLOOD 226 mg/dL
[2020-03-31 02:53] LABS: *AMPHETAMINES SCREEN URINE NEGATIVE (NEGATIVE); *BARBITURATES SCREEN URINE NEGATIVE (NEGATIVE); *BENZODIAZEPINES SCREEN URINE PRESUMTIVE POSITIVE (NEGATIVE); *COCAINE SCREEN URINE NEGATIVE (NEGATIVE)
[2020-03-31 02:54] LABS: CANNABINOID URINE SCREEN NEGATIVE (NEGATIVE); METHADONE URINE SCREEN NEGATIVE (NEGATIVE); PHENCYCLIDINE URINE SCREEN NEGATIVE (NEGATIVE)
[2020-03-31 02:55] LABS: OPIATES URINE SCREEN NEGATIVE (NEGATIVE)
[2020-03-31] MEDS ORDERED: ENOXAPARIN 80MG/0.8ML SYR SUBCUT ONE (03:00)
[2020-03-31] MEDS ORDERED: MORPHINE SULFATE 2 MG/ML CPJ (NOT FOR IM USE) IV PRN (06:30)
[2020-03-31] MEDS ORDERED: ACETAMINOPHEN 325MG TABLET PO PRN (06:30)
[2020-03-31] MEDS ORDERED: DOCUSATE SODIUM 100MG CAPSULE PO PRN (06:30)
[2020-03-31] MEDS ORDERED: ONDANSETRON HCL 4MG/2ML INJ IV PRN (06:30)
[2020-03-31] MEDS ORDERED: HYDROCODONE/ACETAMINOPHEN 5/325MG TABLET PO PRN (06:30)
[2020-03-31] MEDS ORDERED: MAGNESIUM/ALUMINUM HYDROXIDE/SIMETHICONE 30ML UDC PO PRN (06:30)
[2020-03-31] MEDS ORDERED: GUAIFENESIN 200MG/10ML SUGAR FREE UDC PO PRN (06:30)
[2020-03-31] MEDS: ASPIRIN 81MG EC TABLET PO SCH (08:36)
[2020-03-31] MEDS: AMLODIPINE 10MG TABLET PO SCH (08:37)
[2020-03-31] MEDS: METOPROLOL TARTRATE 25MG TABLET PO SCH ×2 (14:10→21:14)
[2020-03-31 17:50] VITALS: BP 195/92
[2020-03-31] MEDS: LISINOPRIL 40MG TABLET PO SCH (18:27)
[2020-03-31] MEDS ORDERED: AMLODIPINE 10MG TABLET PO NR (18:30)
[2020-03-31] MEDS ORDERED: CLONIDINE 0.1MG TABLET PO PRN (18:30)
[2020-03-31 20:00] VITALS: BP 153/72
[2020-03-31] MEDS ORDERED: DEXTROSE 50% WATER 50ML SYRINGE IV PRN (20:00)
[2020-03-31] MEDS ORDERED: ZOLPIDEM TARTRATE 5MG TABLET PO PRN (20:45)
[2020-03-31] MEDS: INSULIN LISPRO 100 UNITS/ML SUBCUT SCH (21:00)
[2020-03-31] MEDS: BLOOD SUGAR DIAGNOSTIC STRIP TEST SCH (21:14)
[2020-03-31 22:00] VITALS: BP 160/89
[2020-04-01] VITALS (8 sets, daily range): BP systolic 141–165; BP diastolic 75–95
[2020-04-01] MEDS: BLOOD SUGAR DIAGNOSTIC STRIP TEST SCH ×2 (06:50→12:19)
[2020-04-01 06:57] LABS: BASOPHILS % 0.7 % (0.0-2.0); EOSINOPHILS % 1.2 % (0.0-5.0); HEMOGLOBIN. 14.5 g/dL (14.0-18.0); LYMPHOCYTES % 28.9 % (20.0-50.0); MEAN CORPUSCULAR HEMOGLOBIN 31.8 pg (28.0-32.0); MEAN CORPUSCULAR VOLUME 92.3 fL (80.0-94.0); MONOCYTES % 9.3 % (2.0-8.0); NEUTROPHILS % 59.9 % (40.0-76.0); PLATELET 205 x1000/uL (130-400); RED BLOOD CELL COUNT 4.54 mill/uL (4.7-6.1); RED CELL DISTRIBUTION WIDTH 14.9 % (11.6-14.6)
[2020-04-01 07:03] LABS: CHLORIDE 100 mEq/L (98-107)
[2020-04-01 07:13] LABS: LDL CHOLESTEROL 103 mg/dL (5-100)
[2020-04-01 07:14] LABS: HDL CHOLESTEROL 52 mg/dL (40-59)
[2020-04-01] MEDS: INSULIN LISPRO 100 UNITS/ML SUBCUT SCH ×2 (07:20→12:20)
[2020-04-01] MEDS: AMLODIPINE 10MG TABLET PO SCH (07:45)
[2020-04-01] MEDS: LISINOPRIL 40MG TABLET PO SCH (07:45)
[2020-04-01] MEDS: METOPROLOL TARTRATE 25MG TABLET PO SCH (07:45)
[2020-04-01] MEDS ORDERED: ENOXAPARIN 40MG/0.4ML SYR SUBCUT SCH (09:00)
[2020-04-01] MEDS ORDERED: METOPROLOL TARTRATE 25MG TABLET PO NR (09:15)
[2020-04-01] MEDS ORDERED: POTASSIUM CHLORIDE 20MEQ TABLET SR PO NR (09:30)
[2020-04-01] MEDS: ASPIRIN 81MG EC TABLET PO SCH (09:52)
== END 2020-04-01 13:30 | disposition home or self-care (01) | DRG 203 ==
LOC: ER 20:49 → 3WST 03-31 04:24 → EDBEDREQTM 03-31 04:28 → EDBEDREQ 03-31 04:28 → ENRESERV 03-31 16:13
PROVIDERS: ADMIT Hospitalist; ATTEND Hospitalist
DX: R07.89 Other chest pain (principal); E11.9 Type 2 diabetes mellitus without complications; E66.9 Obesity, unspecified; G89.29 Other chronic pain; I10 Essential (primary) hypertension; F10.20 Alcohol dependence, uncomplicated; E78.5 Hyperlipidemia, unspecified; Z71.41 Alcohol abuse counseling and surveillance of alcoholic; Z68.36 Body mass index [BMI] 36.0-36.9, adult
CPT/HCPCS: 36415; 71045; 80053; 80061; 80305; 80320; 82962; 83880; 84484; 85025; 93005; 96372; 99291; J1650; G0480

== ENCOUNTER 2020-06-15 01:33 | Inpatient (IN) | payer MEDICAID, OTHER ==
[~2020-06-15] VITALS: Ht 175.3 cm; Wt 115.7 kg
[2020-06-15 03:27] LABS: BASOPHILS % 0.7 % (0.0-2.0); EOSINOPHILS % 1.1 % (0.0-5.0); HEMATOCRIT. 39.6 % (42.0-52.0); HEMOGLOBIN. 13.4 g/dL (14.0-18.0); LYMPHOCYTES % 40.8 % (20.0-50.0); MEAN CORPUSCULAR HEMOGLOBIN 31.9 pg (28.0-32.0); MEAN CORPUSCULAR VOLUME 94.6 fL (80.0-94.0); MEAN PLATELET VOLUME 7.5 fl (7.4-10.4); MONOCYTES % 6.5 % (2.0-8.0); NEUTROPHILS % 50.9 % (40.0-76.0); PLATELET 211 x1000/uL (130-400); RED BLOOD CELL COUNT 4.19 mill/uL (4.7-6.1); RED CELL DISTRIBUTION WIDTH 14.1 % (11.6-14.6)
[2020-06-15 03:29] LABS: CHLORIDE 107 mEq/L (98-107)
[2020-06-15 03:46] LABS: ETHANOL BLOOD 334 mg/dL
[2020-06-15] MEDS ORDERED: ASPIRIN 325MG EC TABLET PO NR (04:00)
[2020-06-15] MEDS ORDERED: ONDANSETRON HCL 4MG/2ML INJ IV PRN (06:45)
[2020-06-15] MEDS ORDERED: ACETAMINOPHEN 325MG TABLET PO PRN ×2 (06:45)
[2020-06-15] MEDS ORDERED: IPRATROPIUM/ALBUTEROL 0.5-3(2.5)MG/3ML NEB NEB PRN (06:45)
[2020-06-15] MEDS ORDERED: DOCUSATE SODIUM 100MG CAPSULE PO PRN (06:45)
[2020-06-15] MEDS ORDERED: KETOROLAC 15MG/ML VIAL IV PRN (06:45)
[2020-06-15] MEDS ORDERED: NITROGLYCERIN 0.4MG TABLET SL SL PRN (06:45)
[2020-06-15] MEDS ORDERED: GUAIFENESIN 200MG/10ML SUGAR FREE UDC PO PRN (06:45)
[2020-06-15] MEDS ORDERED: NA PHOS,M-B/NA PHOS,DI-BA ENEMA 118ML PR PRN (06:45)
[2020-06-15] MEDS ORDERED: MAGNESIUM/ALUMINUM HYDROXIDE/SIMETHICONE 30ML UDC PO PRN (06:45)
[2020-06-15] MEDS ORDERED: MVI, ADULT NO.1 10 ML, FOLIC ACID 1 MG, THIAMINE HCL 100 MG in SODIUM CHLORIDE 0.9% 1,0... IV SCH ×4 (08:00)
[2020-06-15 08:47] VITALS: BP 193/89
[2020-06-15] MEDS ORDERED: ENOXAPARIN 120MG/0.8ML SYR SUBCUT SCH (09:00)
[2020-06-15] MEDS: FAMOTIDINE 20MG TABLET PO SCH ×2 (09:49→21:04)
[2020-06-15] MEDS: METOPROLOL TARTRATE 25MG TABLET PO SCH ×2 (09:49→20:18)
[2020-06-15] MEDS: CLONIDINE 0.1MG TABLET PO PRN ×3 (09:49→23:57)
[2020-06-15] MEDS ORDERED: DEXTROSE 50% WATER 50ML SYRINGE IV PRN (11:45)
[2020-06-15 11:48] VITALS: BP 173/92
[2020-06-15 12:21] VITALS: BP 173/72
[2020-06-15] MEDS: BLOOD SUGAR DIAGNOSTIC STRIP TEST SCH ×3 (12:49→21:06)
[2020-06-15] MEDS: INSULIN LISPRO 100 UNITS/ML SUBCUT SCH ×3 (13:05→21:06)
[2020-06-15 16:00] VITALS: BP 180/97
[2020-06-15 16:17] LABS: CREATINE KINASE MB FRACTION 6.4 ng/mL (0.5-3.6)
[2020-06-15 20:00] VITALS: BP 210/110
[2020-06-15] MEDS: LORAZEPAM 0.5MG TABLET PO PRN (20:13)
[2020-06-15] MEDS: ATORVASTATIN CALCIUM 20MG TABLET PO SCH (20:17)
[2020-06-15] MEDS: ZOLPIDEM TARTRATE 5MG TABLET PO PRN (23:27)
[2020-06-16] VITALS: BP 165/89
[2020-06-16 00:04] LABS: CREATINE KINASE MB FRACTION 4.2 ng/mL (0.5-3.6)
[2020-06-16 04:00] VITALS: BP 193/89
[2020-06-16] MEDS: CLONIDINE 0.1MG TABLET PO PRN ×3 (05:44→20:50)
[2020-06-16] MEDS: INSULIN LISPRO 100 UNITS/ML SUBCUT SCH ×4 (06:35→20:51)
[2020-06-16] MEDS: BLOOD SUGAR DIAGNOSTIC STRIP TEST SCH ×4 (06:35→20:50)
[2020-06-16 08:19] VITALS: BP 168/94
[2020-06-16] MEDS: AMLODIPINE 5MG TABLET PO SCH (08:57)
[2020-06-16] MEDS: METOPROLOL TARTRATE 25MG TABLET PO SCH ×2 (08:57→20:52)
[2020-06-16] MEDS: ASPIRIN 325MG EC TABLET PO SCH (08:57)
[2020-06-16] MEDS: FAMOTIDINE 20MG TABLET PO SCH ×2 (08:57→20:50)
[2020-06-16] MEDS: LORAZEPAM 0.5MG TABLET PO PRN ×2 (10:59→18:36)
[2020-06-16 12:21] VITALS: BP 174/85
[2020-06-16 16:00] VITALS: BP 166/91
[2020-06-16 20:00] VITALS: BP 211/96
[2020-06-16] MEDS: ATORVASTATIN CALCIUM 20MG TABLET PO SCH (20:49)
[2020-06-16] MEDS: ZOLPIDEM TARTRATE 5MG TABLET PO PRN (23:29)
[2020-06-17] VITALS: BP 194/80
[2020-06-17 04:00] VITALS: BP 189/88
[2020-06-17] MEDS: CLONIDINE 0.1MG TABLET PO PRN (05:08)
[2020-06-17] MEDS: LORAZEPAM 0.5MG TABLET PO PRN (06:08)
[2020-06-17] MEDS: INSULIN LISPRO 100 UNITS/ML SUBCUT SCH ×2 (06:08→11:27)
[2020-06-17] MEDS: BLOOD SUGAR DIAGNOSTIC STRIP TEST SCH ×2 (06:13→11:26)
[2020-06-17 08:00] VITALS: BP 171/94
[2020-06-17] MEDS ORDERED: LISINOPRIL 10MG TABLET PO SCH (09:00)
[2020-06-17] MEDS: AMLODIPINE 5MG TABLET PO SCH (09:48)
[2020-06-17] MEDS: ASPIRIN 325MG EC TABLET PO SCH (09:48)
[2020-06-17] MEDS: METOPROLOL TARTRATE 25MG TABLET PO SCH (09:49)
[2020-06-17] MEDS: FAMOTIDINE 20MG TABLET PO SCH (09:49)
[2020-06-17 12:00] VITALS: BP 189/107
== END 2020-06-17 14:00 | disposition left against medical advice (07) | DRG 190 ==
LOC: ER 01:33 → 8WST 03:55 → ENRESERV 07:30
PROVIDERS: ADMIT Internal Medicine; ATTEND Internal Medicine
DX: I21.4 Non-ST elevation (NSTEMI) myocardial infarction (principal); I21.A1 Myocardial infarction type 2; F10.229 Alcohol dependence with intoxication, unspecified; I50.32 Chronic diastolic (congestive) heart failure; I11.0 Hypertensive heart disease with heart failure; E11.65 Type 2 diabetes mellitus with hyperglycemia; Y90.8 Blood alcohol level of 240 mg/100 ml or more; D64.9 Anemia, unspecified; E66.9 Obesity, unspecified; E78.5 Hyperlipidemia, unspecified; I16.0 Hypertensive urgency; F10.239 Alcohol dependence with withdrawal, unspecified; Z53.29 Procedure and treatment not carried out because of patient's decision for other reasons; Z71.41 Alcohol abuse counseling and surveillance of alcoholic; Z68.37 Body mass index [BMI] 37.0-37.9, adult
CPT/HCPCS: 36415; 71045; 71275; 74174; 80053; 80061; 80320; 82550; 82553; 82962; 83036; 83880; 84484; 85025; 93005; 93306; 93970; 96365; 99285; J1650; J1815; J3411; J3490; J7030; G0480

== ENCOUNTER 2020-06-18 17:55 | Emergency (ER) | payer MEDICAID, OTHER ==
[~2020-06-18] VITALS: Ht 177.8 cm; Wt 91.0 kg
[2020-06-18 20:13] VITALS: BP 129/78
== END 2020-06-18 20:14 | disposition home or self-care (01) ==
LOC: ER 17:55
DX: Z76.89 Persons encountering health services in other specified circumstances (principal); R10.30 Lower abdominal pain, unspecified; I10 Essential (primary) hypertension; E11.9 Type 2 diabetes mellitus without complications
CPT/HCPCS: 99283

== ENCOUNTER 2020-06-23 19:47 | Inpatient (IN) | payer MEDICAID, OTHER ==
[~2020-06-23] VITALS: Ht 175.3 cm; Wt 115.7 kg
[2020-06-23 21:00] LABS: BASOPHILS % 1.1 % (0.0-2.0); EOSINOPHILS % 2.7 % (0.0-5.0); HEMATOCRIT. 41.2 % (42.0-52.0); HEMOGLOBIN. 13.9 g/dL (14.0-18.0); LYMPHOCYTES % 40.8 % (20.0-50.0); MEAN CORPUSCULAR HEMOGLOBIN 31.8 pg (28.0-32.0); MEAN CORPUSCULAR VOLUME 94.1 fL (80.0-94.0); MEAN PLATELET VOLUME 6.5 fl (7.4-10.4); MONOCYTES % 12.3 % (2.0-8.0); NEUTROPHILS % 43.1 % (40.0-76.0); PLATELET 181 x1000/uL (130-400); RED BLOOD CELL COUNT 4.38 mill/uL (4.7-6.1); RED CELL DISTRIBUTION WIDTH 14.5 % (11.6-14.6)
[2020-06-23] MEDS ORDERED: ASPIRIN 81MG TABLET PO ONE (21:00)
[2020-06-23 21:04] LABS: CHLORIDE 106 mEq/L (98-107)
[2020-06-23 21:23] LABS: ETHANOL BLOOD 335 mg/dL
[2020-06-23] MEDS ORDERED: FOLIC ACID 1 MG, THIAMINE HCL 100 MG, MVI, ADULT NO.1 10 ML in DEXTROSE 5% WATER 1,000 ML IV ONE ×4 (22:00)
[2020-06-23] MEDS ORDERED: LABETALOL 5MG/ML SYR 20 MG/4 ML SYRINGE IV ONE (23:45)
[2020-06-24] MEDS ORDERED: DIPHENHYDRAMINE 50MG/ML VIAL IV PRN
[2020-06-24] MEDS ORDERED: ONDANSETRON HCL 4MG/2ML INJ IV PRN
[2020-06-24] MEDS ORDERED: MAGNESIUM/ALUMINUM HYDROXIDE/SIMETHICONE 30ML UDC PO PRN
[2020-06-24] MEDS ORDERED: GUAIFENESIN 200MG/10ML SUGAR FREE UDC PO PRN
[2020-06-24] MEDS ORDERED: ACETAMINOPHEN 325MG TABLET PO PRN
[2020-06-24 00:15] VITALS: BP 178/94
[2020-06-24] MEDS ORDERED: LABETALOL 5MG/ML SYR 20 MG/4 ML SYRINGE IV PRN (00:30)
[2020-06-24] MEDS ORDERED: DEXTROSE 50% WATER 50ML SYRINGE IV PRN (00:30)
[2020-06-24] MEDS: CLONIDINE 0.1MG TABLET PO PRN ×4 (00:53→20:18)
[2020-06-24] MEDS: ZOLPIDEM TARTRATE 5MG TABLET PO PRN ×2 (01:59→22:10)
[2020-06-24 04:37] VITALS: BP 132/66
[2020-06-24] MEDS: PANTOPRAZOLE 40MG DR TABLET PO SCH (06:23)
[2020-06-24] MEDS: BLOOD SUGAR DIAGNOSTIC STRIP TEST SCH ×4 (06:24→20:19)
[2020-06-24 08:01] VITALS: BP 156/75
[2020-06-24] MEDS: THIAMINE HCL 100MG TABLET PO SCH (08:25)
[2020-06-24] MEDS: LISINOPRIL 10MG TABLET PO SCH ×2 (08:26→20:18)
[2020-06-24] MEDS: METFORMIN HCL 500MG TABLET PO SCH ×2 (08:26→18:04)
[2020-06-24] MEDS: ACETAMINOPHEN 325MG TABLET PO PRN ×2 (08:26→13:07)
[2020-06-24] MEDS: AMLODIPINE 10MG TABLET PO SCH (08:26)
[2020-06-24] MEDS: ASPIRIN 81MG EC TABLET PO SCH (08:26)
[2020-06-24] MEDS: METOPROLOL TARTRATE 25MG TABLET PO SCH ×2 (08:27→20:18)
[2020-06-24] MEDS: INSULIN LISPRO 100 UNITS/ML SUBCUT SCH ×4 (08:30→20:27)
[2020-06-24 12:00] VITALS: BP 169/84
[2020-06-24] MEDS: SODIUM CHLORIDE 0.9% 1,000 ML IV ONE ×2 (14:45→15:26)
[2020-06-24 18:14] LABS: *BARBITURATES SCREEN URINE NEGATIVE (NEGATIVE); *BENZODIAZEPINES SCREEN URINE NEGATIVE (NEGATIVE); *COCAINE SCREEN URINE NEGATIVE (NEGATIVE)
[2020-06-24 18:15] LABS: *AMPHETAMINES SCREEN URINE NEGATIVE (NEGATIVE); CANNABINOID URINE SCREEN NEGATIVE (NEGATIVE); METHADONE URINE SCREEN NEGATIVE (NEGATIVE); OPIATES URINE SCREEN NEGATIVE (NEGATIVE); PHENCYCLIDINE URINE SCREEN NEGATIVE (NEGATIVE)
[2020-06-24 20:00] VITALS: BP 187/82
[2020-06-24] MEDS: ATORVASTATIN CALCIUM 20MG TABLET PO SCH (20:18)
[2020-06-24] MEDS: CHLORDIAZEPOXIDE 25MG CAPSULE PO SCH (21:21)
[2020-06-24] MEDS ORDERED: MVI, ADULT NO.1 10 ML, FOLIC ACID 1 MG, THIAMINE HCL 100 MG in SODIUM CHLORIDE 0.9% 1,0... IV SCH ×4 (22:00)
[2020-06-25 00:37] VITALS: BP 170/78
[2020-06-25 04:00] VITALS: BP 165/80
[2020-06-25] MEDS: CLONIDINE 0.1MG TABLET PO PRN (05:03)
[2020-06-25] MEDS: CHLORDIAZEPOXIDE 25MG CAPSULE PO SCH ×3 (06:07→21:38)
[2020-06-25] MEDS: PANTOPRAZOLE 40MG DR TABLET PO SCH (06:20)
[2020-06-25] MEDS: BLOOD SUGAR DIAGNOSTIC STRIP TEST SCH ×4 (06:21→21:00)
[2020-06-25 06:41] LABS: CHLORIDE 100 mEq/L (98-107)
[2020-06-25 06:50] LABS: PHOSPHORUS 2.3 mg/dL (2.5-4.9)
[2020-06-25 06:51] LABS: BASOPHILS % 0.6 % (0.0-2.0); EOSINOPHILS % 1.6 % (0.0-5.0); HEMATOCRIT. 37.2 % (42.0-52.0); HEMOGLOBIN. 12.6 g/dL (14.0-18.0); LYMPHOCYTES % 30.3 % (20.0-50.0); MEAN CORPUSCULAR HEMOGLOBIN 31.9 pg (28.0-32.0); MEAN CORPUSCULAR VOLUME 93.8 fL (80.0-94.0); MEAN PLATELET VOLUME 7.1 fl (7.4-10.4); MONOCYTES % 12.4 % (2.0-8.0); NEUTROPHILS % 55.1 % (40.0-76.0); PLATELET 174 x1000/uL (130-400); RED BLOOD CELL COUNT 3.96 mill/uL (4.7-6.1); RED CELL DISTRIBUTION WIDTH 14.3 % (11.6-14.6)
[2020-06-25] MEDS: INSULIN LISPRO 100 UNITS/ML SUBCUT SCH ×4 (07:21→21:00)
[2020-06-25 08:00] VITALS: BP 157/73
[2020-06-25] MEDS: METFORMIN HCL 500MG TABLET PO SCH ×2 (08:18→17:20)
[2020-06-25] MEDS: LISINOPRIL 10MG TABLET PO SCH ×2 (08:18→21:37)
[2020-06-25] MEDS: AMLODIPINE 10MG TABLET PO SCH (08:18)
[2020-06-25] MEDS: THIAMINE HCL 100MG TABLET PO SCH (08:18)
[2020-06-25] MEDS: METOPROLOL TARTRATE 25MG TABLET PO SCH ×2 (08:19→21:37)
[2020-06-25] MEDS: ASPIRIN 81MG EC TABLET PO SCH (08:19)
[2020-06-25] MEDS ORDERED: POTASSIUM CHLORIDE 20MEQ TABLET SR PO NR (09:30)
[2020-06-25] MEDS ORDERED: MAGNESIUM 2 G PREMIX 50 ML IV NR (11:30)
[2020-06-25] MEDS ORDERED: POTASSIUM PHOS,M-BASIC-D-BASIC 15 MMOL in DEXT 5% WATER 245 ML IV NR (11:30)
[2020-06-25 12:00] VITALS: BP 190/97
[2020-06-25] MEDS: LORAZEPAM 2MG/ML CPJ IV PRN (12:05)
[2020-06-25 16:00] VITALS: BP 147/74
[2020-06-25 20:50] VITALS: BP 123/68
[2020-06-25] MEDS: ATORVASTATIN CALCIUM 20MG TABLET PO SCH (21:45)
[2020-06-26 00:11] VITALS: BP 141/92
[2020-06-26] MEDS: LORAZEPAM 2MG/ML CPJ IV PRN (00:35)
[2020-06-26] MEDS ORDERED: FAMOTIDINE 20MG TABLET PO SCH (09:00)
[2020-08-24] MEDS ORDERED: METF-416 MT (09:04)
[2020-08-24] MEDS ORDERED: AMLO10TA80 PO (09:04)
[2020-08-24] MEDS ORDERED: THIA100T72 PO (09:04)
[2020-08-24] MEDS ORDERED: HYDR100T26 MT (09:04)
[2020-08-24] MEDS ORDERED: LISI-604 PO (09:04)
[2020-08-24] MEDS ORDERED: LIP40 PO (09:04)
[2020-09-02] MEDS ORDERED: AMLO10TA80 PO (08:54)
[2020-09-02] MEDS ORDERED: THIA100T72 PO (08:54)
[2020-09-02] MEDS ORDERED: METF-416 MT (08:54)
[2020-09-02] MEDS ORDERED: HYDR100T26 MT (08:54)
[2020-09-02] MEDS ORDERED: LISI-604 PO (08:54)
== END 2020-06-26 01:30 | disposition left against medical advice (07) | DRG 203 ==
LOC: EDBD → ER 19:47 → MICUSO 21:58 → 6WST 22:37
PROVIDERS: ADMIT Internal Medicine; ATTEND Internal Medicine
DX: M94.0 Chondrocostal junction syndrome [Tietze] (principal); R07.89 Other chest pain; F10.239 Alcohol dependence with withdrawal, unspecified; I10 Essential (primary) hypertension; J42 Unspecified chronic bronchitis; Y90.8 Blood alcohol level of 240 mg/100 ml or more; E11.65 Type 2 diabetes mellitus with hyperglycemia; Z53.29 Procedure and treatment not carried out because of patient's decision for other reasons; F17.200 Nicotine dependence, unspecified, uncomplicated; Z79.899 Other long term (current) drug therapy; Z59.0 Homelessness; Z91.19 Patient's noncompliance with other medical treatment and regimen; F10.229 Alcohol dependence with intoxication, unspecified; E83.39 Other disorders of phosphorus metabolism; E83.42 Hypomagnesemia
CPT/HCPCS: 36415; 71045; 80053; 80305; 80320; 82962; 83036; 83735; 83880; 84100; 84484; 85025; 93005; 99285; C1893; J1815; J2060; J2405; J3411; J3475; J3490; J7030; J7060; J7070; G0480

== ENCOUNTER 2020-12-08 19:27 | Inpatient (IN) | payer MEDICAID ==
[~2020-12-08] VITALS: Ht 175.3 cm; Wt 99.8 kg
[~2020-12-08 19:27] MED LIST: AMLO10TA80 PO; ASPI-1160 PO; HYDR100T26 MT; LISI20TA31 PO; METF-416 MT; THIA100T72 PO
[2020-12-08 21:03] LABS: BASOPHILS % 0.6 % (0.0-2.0); EOSINOPHILS % 1.1 % (0.0-5.0); HEMATOCRIT. 37.9 % (42.0-52.0); HEMOGLOBIN. 12.8 g/dL (14.0-18.0); LYMPHOCYTES % 23.8 % (20.0-50.0); MEAN CORPUSCULAR HEMOGLOBIN 30.1 pg (28.0-32.0); MEAN CORPUSCULAR VOLUME 89.5 fL (80.0-94.0); MONOCYTES % 6.6 % (2.0-8.0); NEUTROPHILS % 67.9 % (40.0-76.0); PLATELET 209 x1000/uL (130-400); RED BLOOD CELL COUNT 4.24 mill/uL (4.7-6.1); RED CELL DISTRIBUTION WIDTH 16.1 % (11.6-14.6)
[2020-12-08 21:09] LABS: CHLORIDE 102 mEq/L (98-107)
[2020-12-08 21:14] LABS: ETHANOL BLOOD 120 mg/dL
[2020-12-08 21:16] LABS: BETA HYDROXYBUTYRATE 0.1 mMol/L (0.0-0.3)
[2020-12-08] MEDS ORDERED: SODIUM CHLORIDE 0.9% 1,000 ML IV ONE (21:45)
[2020-12-08] MEDS ORDERED: LORAZEPAM 1MG TABLET PO ONE (21:45)
[2020-12-08] MEDS ORDERED: ASPIRIN 325MG EC TABLET PO ONE (22:15)
[2020-12-09 04:00] VITALS: BP 161/95
[2020-12-09 08:00] VITALS: BP 135/65
[2020-12-09] MEDS ORDERED: CLONIDINE 0.1MG TABLET PO PRN (08:45)
[2020-12-09] MEDS ORDERED: ENOXAPARIN 30MG/0.3ML SYR SUBCUT SCH (09:00)
[2020-12-09] MEDS: ASPIRIN 81MG TABLET PO SCH (09:49)
[2020-12-09] MEDS: LEVOFLOXACIN 500MG TABLET PO SCH (09:49)
[2020-12-09] MEDS: AMLODIPINE 10MG TABLET PO SCH (09:50)
[2020-12-09] MEDS: LORAZEPAM 2MG/ML CPJ IV PRN ×2 (09:51→17:56)
[2020-12-09 12:00] VITALS: BP 114/75
[2020-12-09 12:45] VITALS: BP 135/65
[2020-12-09 14:34] LABS: CLARITY URINE CLEAR (CLEAR); COLOR URINE YELLOW (YELLOW); KETONES URINE NEGATIVE (NEGATIVE); LEUKOCYTE ESTERASE URINE NEGATIVE (NEGATIVE); NITRITE URINE NEGATIVE (NEGATIVE); OCCULT BLOOD URINE NEGATIVE (NEGATIVE); PROTEIN URINE NEGATIVE (NEGATIVE); SPECIFIC GRAVITY URINE 1.013 (1.005-1.030); UROBILINOGEN URINE 0.2 E.U./dL (0.2-1.0)
[2020-12-09 14:45] LABS: *AMPHETAMINES SCREEN URINE NEGATIVE (NEGATIVE)
[2020-12-09 14:46] LABS: *BARBITURATES SCREEN URINE NEGATIVE (NEGATIVE); *BENZODIAZEPINES SCREEN URINE PRESUMTIVE POSITIVE (NEGATIVE); *COCAINE SCREEN URINE NEGATIVE (NEGATIVE); METHADONE URINE SCREEN NEGATIVE (NEGATIVE); OPIATES URINE SCREEN PRESUMTIVE POSITIVE (NEGATIVE); PHENCYCLIDINE URINE SCREEN NEGATIVE (NEGATIVE)
[2020-12-09 14:47] LABS: CANNABINOID URINE SCREEN NEGATIVE (NEGATIVE)
[2020-12-09 16:00] VITALS: BP 136/72
[2020-12-09] MEDS: METFORMIN HCL 500MG TABLET PO SCH (17:55)
[2020-12-09 20:00] VITALS: BP 135/70
[2020-12-09] MEDS: ATORVASTATIN CALCIUM 40MG TABLET PO SCH (21:19)
[2020-12-10] VITALS: BP 140/77
[2020-12-10 04:00] VITALS: BP 151/94
[2020-12-10 08:00] VITALS: BP 140/90
[2020-12-10] MEDS: METFORMIN HCL 500MG TABLET PO SCH ×2 (08:16→17:46)
[2020-12-10] MEDS: ASPIRIN 81MG TABLET PO SCH (10:03)
[2020-12-10] MEDS: AMLODIPINE 10MG TABLET PO SCH (10:03)
[2020-12-10] MEDS: LORAZEPAM 2MG/ML CPJ IV PRN ×2 (10:03→19:46)
[2020-12-10] MEDS: LEVOFLOXACIN 500MG TABLET PO SCH (11:20)
[2020-12-10 12:00] VITALS: BP 124/69
[2020-12-10 16:00] VITALS: BP 140/77
[2020-12-10] MEDS: ATORVASTATIN CALCIUM 40MG TABLET PO SCH (20:04)
[2020-12-11 04:00] VITALS: BP 118/67
[2020-12-11 08:00] VITALS: BP 132/78
[2020-12-11] MEDS: AMLODIPINE 10MG TABLET PO SCH (09:21)
[2020-12-11] MEDS: METFORMIN HCL 500MG TABLET PO SCH ×2 (09:21→17:54)
[2020-12-11] MEDS: ASPIRIN 81MG TABLET PO SCH (09:21)
[2020-12-11] MEDS: LORAZEPAM 2MG/ML CPJ IV PRN ×2 (09:26→17:54)
[2020-12-11 12:00] VITALS: BP 116/58
[2020-12-11] MEDS: LEVOFLOXACIN 500MG TABLET PO SCH (12:05)
[2020-12-11 16:00] VITALS: BP 139/78
[2020-12-11] MEDS: ATORVASTATIN CALCIUM 40MG TABLET PO SCH (20:33)
[2020-12-12 04:00] VITALS: BP 145/87
[2020-12-12] MEDS: LORAZEPAM 2MG/ML CPJ IV PRN ×3 (07:05→21:20)
[2020-12-12 08:00] VITALS: BP 144/83
[2020-12-12] MEDS: METFORMIN HCL 500MG TABLET PO SCH ×2 (08:09→18:09)
[2020-12-12] MEDS: ASPIRIN 81MG TABLET PO SCH (09:13)
[2020-12-12] MEDS: AMLODIPINE 10MG TABLET PO SCH (09:13)
[2020-12-12] MEDS: LEVOFLOXACIN 500MG TABLET PO SCH (11:55)
[2020-12-12 12:00] VITALS: BP 138/82
[2020-12-12 16:00] VITALS: BP 146/85
[2020-12-12 20:00] VITALS: BP 153/89
[2020-12-12] MEDS: ATORVASTATIN CALCIUM 40MG TABLET PO SCH (21:19)
[2020-12-13] VITALS: BP 140/82
[2020-12-13 04:00] VITALS: BP 139/62
[2020-12-13 08:00] VITALS: BP 126/72
[2020-12-13] MEDS: METFORMIN HCL 500MG TABLET PO SCH ×2 (08:27→16:59)
[2020-12-13] MEDS: LORAZEPAM 2MG/ML CPJ IV PRN ×2 (08:28→16:59)
[2020-12-13] MEDS: AMLODIPINE 10MG TABLET PO SCH (10:36)
[2020-12-13] MEDS: LEVOFLOXACIN 500MG TABLET PO SCH (10:36)
[2020-12-13] MEDS: ASPIRIN 81MG TABLET PO SCH (10:36)
[2020-12-13 12:00] VITALS: BP 150/60
[2020-12-13] MEDS ORDERED: LIP40 PO (14:05)
[2020-12-13 16:00] VITALS: BP 132/85
[2020-12-13] MEDS ORDERED: ZOLPIDEM TARTRATE 5MG TABLET PO PRN (19:45)
[2020-12-13 20:00] VITALS: BP 143/93
[2020-12-13] MEDS: ATORVASTATIN CALCIUM 40MG TABLET PO SCH (20:00)
[2020-12-14] VITALS: BP 149/88
[2020-12-14] MEDS: LORAZEPAM 2MG/ML CPJ IV PRN ×2 (02:07→08:18)
[2020-12-14 04:00] VITALS: BP 154/83
[2020-12-14] MEDS: METFORMIN HCL 500MG TABLET PO SCH (06:46)
[2020-12-14 08:00] VITALS: BP 142/94
[2020-12-14] MEDS: AMLODIPINE 10MG TABLET PO SCH (08:17)
[2020-12-14] MEDS: ASPIRIN 81MG TABLET PO SCH (08:17)
[2020-12-14 11:34] VITALS: BP 140/87
== END 2020-12-14 13:15 | disposition home or self-care (01) | DRG 347 ==
LOC: ER 19:27 → 8WST 22:24 → EDBEDREQ 22:27 → EDBEDREQTM 22:27 → ENRESERV 23:32
PROVIDERS: ADMIT Internal Medicine; ATTEND Internal Medicine
DX: M48.02 Spinal stenosis, cervical region (principal); G90.8 Other disorders of autonomic nervous system; J18.9 Pneumonia, unspecified organism; I10 Essential (primary) hypertension; F17.210 Nicotine dependence, cigarettes, uncomplicated; F10.10 Alcohol abuse, uncomplicated; E78.5 Hyperlipidemia, unspecified; E66.9 Obesity, unspecified; E11.9 Type 2 diabetes mellitus without complications; D64.9 Anemia, unspecified; Z20.822 Contact with and (suspected) exposure to COVID-19; E87.2 Acidosis; Y90.9 Presence of alcohol in blood, level not specified; M50.223 Other cervical disc displacement at C6-C7 level; F41.9 Anxiety disorder, unspecified; Z79.82 Long term (current) use of aspirin; Z79.899 Other long term (current) drug therapy; Z68.32 Body mass index [BMI] 32.0-32.9, adult; Z71.41 Alcohol abuse counseling and surveillance of alcoholic; Z71.6 Tobacco abuse counseling
CPT/HCPCS: 36415; 70551; 71045; 72141; 72146; 72148; 80053; 80305; 80320; 81003; 82010; 82962; 83605; 83735; 83880; 84484; 85025; 87426; 93005; 97116; 97162; 97165; 99291; J1650; J2060; J7030; G0480